=== PATIENT | female | born 2000 ===

== ENCOUNTER 2020-11-30 20:55 | Emergency (ER) | payer BC, OTHER ==
[2020-11-30] MEDS ORDERED: Sodium Chloride 0.9% 10 ML Syringe FLUSH PRN (21:17)
[2020-11-30] MEDS ORDERED: Sodium Chloride 0.9% 2.5 ML Syringe FLUSH PRN (21:17)
--- NOTE | 2020-11-30 21:21 | EDM.PDOC ---
ED HPI GENERAL MEDICAL PROBLEM - General Chief Complaint: Abdominal Pain Stated Complaint: ABDOBMINAL PAIN Time Seen by Provider: 11/30/20 21:06 - History of Present Illness INITIAL COMMENTS - FREE TEXT/NARRATIVE: 20-year-old female otherwise well presenting with severe lower abdominal and pelvic pain that started during intercourse immediately prior to arrival. Pain was initially 10 out of 10 and focused in the left lower quadrant. It is now more generalized and 4 out of 10 there is still worse in the bilateral lower quadrants. No nausea no vomiting no diarrhea patient was well prior to the onset of pain. She has no prior history of gynecologic problems. Her last menstrual period was at the end of October and was normal for her. Pain worsens with direct pressure and is currently 4 out of 10 down from a max of 10 out of 10 at time of onset bilateral abdomen Pain Score (Numeric/FACES): 8 - Related Data Allergies Allergy/AdvReac Type Severity Reaction Status Date / Time Sulfa (Sulfonamide Allergy Other Verified 11/30/20 21:09 Antibiotics) Home Meds: Home Meds . [No Known Home Meds] 11/30/20 [History] Past Medical History - Past Health History Medical/Surgical History: Denies Medical/Surgical History HEENT History: Reports: None Cardiovascular History: Reports: None Respiratory History: Reports: None Gastrointestinal History: Reports: Other (See Below) Other Gastrointestinal History: hx of stomach ulcers Genitourinary History: Reports: Other (See Below) Other Genitourinary History: states she had a cyst on her kidney SILK TRIMMER History: Reports: None Musculoskeletal History: Reports: None Neurological History: Reports: None Psychiatric History: Reports: None Endocrine/Metabolic History: Reports: None Hematologic History: Reports: None Immunologic History: Reports: None Oncologic (Cancer) History: Reports: None Dermatologic History: Reports: None - Infectious Disease History Infectious Disease History: Reports: Novel Coronavirus - Past Surgical History Head Surgeries/Procedures: Reports: None Social & Family History - Family History Family Medical History: No Pertinent Family History - Tobacco Use Tobacco Use Status *Q: Never Tobacco User - Caffeine Use Caffeine Use: Reports: None - Recreational Drug Use Recreational Drug Use: No ED ROS GENERAL - Review of Systems Review Of Systems: See Below Free Text/Narrative/Comment: General: No fever. Skin: No rash. Eyes: No vision problems. ENT: No sore throat. Neck: No neck stiffness. Respiratory: No shortness of breath. Cardiac: No chest pain. Gastrointestinal: Per HPI Gynecologic: No vaginal discharge or bleeding Urinary: No dysuria. Musculoskeletal: No myalgias/arthralgias. Neurologic: No headache. ED EXAM, GENERAL - Physical Exam Exam: See Below Free Text/Narrative:: General Appearance: No acute distress, appears comfortable Skin: No rash HEENT: Normocephalic/atraumatic, sclera anicteric, mucous membranes moist Neck: Normal range of motion Chest and Lungs: Bilateral breath sounds, clear to auscultation Cardiovascular: Regular rate and rhythm, no murmur Abdomen: Soft, mild generalized tenderness without guarding or rebound Back: Normal Musculoskeletal: No edema or tenderness Neurologic: Awake, alert, no obvious deficits, moving all extremities Psychiatric: Appropriate, cooperative Course - Vital Signs Last Recorded V/S: Last Vital Signs Temp 97.6 F 11/30/20 21:03 Pulse 72 11/30/20 21:03 Resp 20 11/30/20 21:03 BP 115/72 11/30/20 21:03 Pulse Ox 99 11/30/20 21:03 - Orders/Labs/Meds Orders: Active Orders 24 hr Category Date Time Status Sodium Chloride 0.9% [Saline Flush] Med 11/30/20 21:17 Active 10 ml FLUSH ASDIRECTED PRN Sodium Chloride 0.9% [Saline Flush] Med 11/30/20 21:17 Active 2.5 ml FLUSH ASDIRECTED PRN Saline Lock Insert [OM.PC] Stat Oth 11/30/20 21:17 Ordered Medication Orders Sodium Chloride (Sodium Chloride 0.9% 10 Ml Syringe) 10 ml FLUSH ASDIRECTED PRN PRN Reason: Keep Vein Open Sodium Chloride (Sodium Chloride 0.9% 2.5 Ml Syringe) 2.5 ml FLUSH ASDIRECTED PRN PRN Reason: Keep Vein Open Labs: Laboratory Tests 11/30/20 11/30/20 11/30/20 Range/Units 21:10 21:10 21:15 WBC 6.35 (4.0-11.0) K/uL RBC 4.42 (4.30-5.90) M/uL Hgb 13.9 (12.0-16.0) g/dL Hct 41.6 (36.0-46.0) % MCV 94.1 (80.0-98.0) fL MCH 31.4 (27.0-32.0) pg MCHC 33.4 (31.0-37.0) g/dL RDW Std Deviation 40.9 (28.0-62.0) fl RDW Coeff of Jase 12 (11.0-15.0) % Plt Count 200 (150-400) K/uL MPV 10.50 (7.40-12.00) fL Neut % (Auto) 47.0 L (48.0-80.0) % Lymph % (Auto) 43.9 H (16.0-40.0) % Coke % (Auto) 7.2 (0.0-15.0) % Eos % (Auto) 1.6 (0.0-7.0) % Baso % (Auto) 0.3 (0.0-1.5) % Neut # (Auto) 3.0 (1.4-5.7) K/uL Lymph # (Auto) 2.8 H (0.6-2.4) K/uL Coke # (Auto) 0.5 (0.0-0.8) K/uL Eos # (Auto) 0.1 (0.0-0.7) K/uL Baso # (Auto) 0.0 (0.0-0.1) K/uL Nucleated RBC % 0.0 /100WBC Nucleated RBCs # 0 K/uL Sodium 139 (136-145) mmol/L Potassium 4.2 (3.5-5.1) mmol/L Chloride 102 (98-107) mmol/L Carbon Dioxide 28.8 (21.0-32.0) mmol/L BUN 19 H (7.0-18.0) mg/dL Creatinine 0.9 (0.6-1.0) mg/dL Est Cr Clr Drug Dosing 85.38 mL/min Estimated GFR (MDRD) > 60.0 ml/min Glucose 99 (74-106) mg/dL Calcium 8.7 (8.5-10.1) mg/dL Total Bilirubin 0.2 (0.2-1.0) mg/dL AST 15 (15-37) IU/L ALT 21 (14-63) IU/L Alkaline Phosphatase 88 (46-116) U/L Total Protein 7.3 (6.4-8.2) g/dL Albumin 4.0 (3.4-5.0) g/dL Globulin 3.3 (2.6-4.0) g/dL Albumin/Globulin Ratio 1.2 (0.9-1.6) Urine Color YELLOW Urine Appearance CLEAR Urine pH 7.0 (5.0-8.0) Ur Specific Rhame 1.020 (1.001-1.035) Urine Protein NEGATIVE (NEGATIVE) mg/dL Urine Glucose (UA) NEGATIVE (NEGATIVE) mg/dL Urine Ketones NEGATIVE (NEGATIVE) mg/dL Urine Occult Blood NEGATIVE (NEGATIVE) Urine Nitrite NEGATIVE (NEGATIVE) Urine Bilirubin NEGATIVE (NEGATIVE) Urine Urobilinogen 0.2 (<2.0) EU/dL Ur Leukocyte Esterase NEGATIVE (NEGATIVE) Urine RBC 0-1 (0-2/HPF) Urine WBC 0-1 (0-5/HPF) Ur Epithelial Cells RARE (NONE-FEW) Urine Bacteria RARE (NEGATIVE) Urine HCG, Qual (NEGATIVE) 11/30/20 Range/Units 21:15 WBC (4.0-11.0) K/uL RBC (4.30-5.90) M/uL Hgb (12.0-16.0) g/dL Hct (36.0-46.0) % MCV (80.0-98.0) fL MCH (27.0-32.0) pg MCHC (31.0-37.0) g/dL RDW Std Deviation (28.0-62.0) fl RDW Coeff of Jase (11.0-15.0) % Plt Count (150-400) K/uL MPV (7.40-12.00) fL Neut % (Auto) (48.0-80.0) % Lymph % (Auto) (16.0-40.0) % Coke % (Auto) (0.0-15.0) % Eos % (Auto) (0.0-7.0) % Baso % (Auto) (0.0-1.5) % Neut # (Auto) (1.4-5.7) K/uL Lymph # (Auto) (0.6-2.4) K/uL Coke # (Auto) (0.0-0.8) K/uL Eos # (Auto) (0.0-0.7) K/uL Baso # (Auto) (0.0-0.1) K/uL Nucleated RBC % /100WBC Nucleated RBCs # K/uL Sodium (136-145) mmol/L Potassium (3.5-5.1) mmol/L Chloride (98-107) mmol/L Carbon Dioxide (21.0-32.0) mmol/L BUN (7.0-18.0) mg/dL Creatinine (0.6-1.0) mg/dL Est Cr Clr Drug Dosing mL/min Estimated GFR (MDRD) ml/min Glucose (74-106) mg/dL Calcium (8.5-10.1) mg/dL Total Bilirubin (0.2-1.0) mg/dL AST (15-37) IU/L ALT (14-63) IU/L Alkaline Phosphatase (46-116) U/L Total Protein (6.4-8.2) g/dL Albumin (3.4-5.0) g/dL Globulin (2.6-4.0) g/dL Albumin/Globulin Ratio (0.9-1.6) Urine Color Urine Appearance Urine pH (5.0-8.0) Ur Specific Rhame (1.001-1.035) Urine Protein (NEGATIVE) mg/dL Urine Glucose (UA) (NEGATIVE) mg/dL Urine Ketones (NEGATIVE) mg/dL Urine Occult Blood (NEGATIVE) Urine Nitrite (NEGATIVE) Urine Bilirubin (NEGATIVE) Urine Urobilinogen (<2.0) EU/dL Ur Leukocyte Esterase (NEGATIVE) Urine RBC (0-2/HPF) Urine WBC (0-5/HPF) Ur Epithelial Cells (NONE-FEW) Urine Bacteria (NEGATIVE) Urine HCG, Qual NEGATIVE (NEGATIVE) Meds: Medications Generic Name Dose Route Start Last Admin Trade Name Freq PRN Reason Stop Dose Admin Sodium Chloride 10 ml 11/30/20 21:17 Sodium Chloride 0.9% 10 Ml Syringe FLUSH ASDIRECTED PRN Keep Vein Open Sodium Chloride 2.5 ml 11/30/20 21:17 Sodium Chloride 0.9% 2.5 Ml Syringe FLUSH ASDIRECTED PRN Keep Vein Open Departure - Departure Time of Disposition: 23:53 Disposition: Home, Self-Care 01 Condition: Good Clinical Impression: Abnormal cervix finding, Ruptured ovarian cyst - Discharge Information *PRESCRIPTION DRUG MONITORING PROGRAM REVIEWED*: Not Applicable *COPY OF PRESCRIPTION DRUG MONITORING REPORT IN PATIENT DEISI: Not Applicable Instructions: Ovarian Cyst, [id number] Referrals: Denton Collier MD [Primary Care Provider] - Forms: ED Department Discharge Additional Instructions: There were areas on your cervix that were somewhat abnormal in appearance this could represent some atypical cells or could be within the realm of what is normal for you. This was not related to your presentation today. However it is important that you follow-up with a alteration hand to have formal assessment. If you do not have a alteration hand you can be seen at one of the clinics listed below. [facility] [address] [place] [id number] [facility] [address] [place] [id number] Your ultrasound showed a ruptured hemorrhagic ovarian cyst which is the likely cause of your symptoms. Your symptoms should continue to improve throughout the course of the day. If you have any worsening of pain lightheadedness dizziness nausea or vomiting or any other symptoms please call your doctor right away or return to the ER. It is very important you follow-up with a alteration hand you may need a repeat ultrasound of your pelvis in a few weeks to ensure that the suspected hemorrhagic ovarian cyst is improving on your left ovary. Sepsis Event Note (ED) - Evaluation Sepsis Screening Result: No Definite Risk - Focused Exam Vital Signs: Vital Signs Temp Pulse Resp BP Pulse Ox 11/30/20 21:03 97.6 F 72 20 115/72 99 - My Orders Last 24 Hours: My Active Orders 11/30/20 21:17 Sodium Chloride 0.9% [Saline Flush] 10 ml FLUSH ASDIRECTED PRN Sodium Chloride 0.9% [Saline Flush] 2.5 ml FLUSH ASDIRECTED PRN Saline Lock Insert [OM.PC] Stat - Assessment/Plan Last 24 Hours: My Active Orders 11/30/20 21:17 Sodium Chloride 0.9% [Saline Flush] 10 ml FLUSH ASDIRECTED PRN Sodium Chloride 0.9% [Saline Flush] 2.5 ml FLUSH ASDIRECTED PRN Saline Lock Insert [OM.PC] Stat Assessment:: Otherwise well 20-year-old female presenting with severe lower abdominal/pelvic pain started during intercourse. Ovarian torsion is a consideration but the spontaneous decrease of her pain makes this much less likely. Ruptured ovarian cyst is certainly a consideration. Vaginal injury also needs to be considered and pelvic exam is pending. CBC CMP urine hCG urinalysis and pelvic ultrasound also pending. 2155: Pelvic exam shows no sign of vaginal vault injury no bleeding no laceration normal external female genitalia. Cervix does have what may be some atypia on it this is not related to her presentation but we discussed it. We also discussed the importance of gynecology follow-up for this. 2355: Pelvic ultrasound is consistent with a ruptured hemorrhagic ovarian cyst on the left ovary which I believe is the cause of the patient's pain. Return precautions discussed and understood patient symptoms have continued to improve and she essentially is asymptomatic at this time. The importance of following up with gynecology for further evaluation was discussed and understood.
[2020-11-30 21:55] LABS: BLOOD UREA NITROGEN,BUN 19 mg/dL (7.0-18.0); CARBON DIOXIDE,CO2 28.8 mmol/L (21.0-32.0); CHLORIDE,CL 102 mmol/L (98-107); GLUCOSE RANDOM 99 mg/dL (74-106); POTASSIUM,K 4.2 mmol/L (3.5-5.1); SODIUM,NA 139 mmol/L (136-145)
--- NOTE | 2020-11-30 23:50 | US ---
For Patients: As a result of the Century Cures Act, medical imaging exams and procedure reports are released immediately into your electronic medical record. You may view this report before your referring provider. If you have questions, please contact your health care provider. INDICATION: Left lower quadrant pain during intercourse TECHNIQUE: Multiple transvaginal sonographic images of the pelvis. COMPARISON: None available FINDINGS: Uterus: 7.6 x 4.2 x 3.8 cm. Unremarkable echotexture of the myometrium. No masses. Endometrium: 13 mm in thickness. Inhomogeneous endometrial echotexture with possible small endometrial fluid. Right ovary: 3.4 x 3.8 x 1.5 cm. No ovarian or adnexal masses. Normal arterial and venous blood flow. Left ovary: 3.7 x 3.5 x 2.2 cm. A 3.2 x 1.7 x 1.0 cm ovoid echogenic area/structure adjacent to the left ovary, containing foci of color Doppler. Normal arterial and venous blood flow. Cul-de-sac: Moderate complex free-fluid. IMPRESSION: Moderate complex free fluid which could be related to a ruptured hemorrhagic cyst. A 3.2 cm ovoid echogenic area adjacent to the left ovary, containing foci of color Doppler, which could represent a blood clot surrounding adnexal vessels or a paraovarian lesion. A 6 week follow-up examination is recommended for further evaluation. Prominent endometrium containing apparent small fluid, which could be physiologic. Dictated by Ishan Nix MD @ 11/30/2020 11:49:[address] Ishan Nix @ Nov 30 2020 11:49PM
== END 2020-12-01 00:10 | disposition home or self-care (01) ==
LOC: MW.ED 20:55
DX: N83.202 Unspecified ovarian cyst, left side (principal); Z88.2 Allergy status to sulfonamides; Z86.16 Personal history of COVID-19
CPT/HCPCS: 36415; 76856; 76856-26; 80053; 81001; 81025; 85025; 99284-25

== ENCOUNTER 2022-01-18 20:58 | Inpatient (IN) | payer BC, OTHER ==
[2022-01-18] MEDS ORDERED: Water For Irrigation,Sterile 1,000 ML Container IRR PRN (21:28)
[2022-01-18] MEDS ORDERED: Misoprostol 200 MCG Tab PO PRN (21:28)
[2022-01-18] MEDS ORDERED: Misoprostol 25 MCG (1/4 of 100 MCG) Tab VAG PRN (21:28)
[2022-01-18] MEDS ORDERED: Sodium Chloride 0.9% 2.5 ML Syringe FLUSH PRN (21:28)
[2022-01-18] MEDS ORDERED: Sodium Chloride 0.9% 20 ML SDV IV PRN (21:28)
[2022-01-18] MEDS ORDERED: Tranexamic Acid 1,000 MG in Sodium Chloride 0.9% 100 ML IV PRN (21:28)
[2022-01-18] MEDS ORDERED: Butorphanol 1 MG/ML SDV IVPUSH PRN (21:28)
[2022-01-18] MEDS ORDERED: Sodium Chloride 0.9% 10 ML Syringe FLUSH PRN (21:28)
[2022-01-18] MEDS ORDERED: Terbutaline 1 MG/ML SDV SUBCUT PRN (21:28)
[2022-01-18] MEDS ORDERED: Methylergonovine 0.2 MG/1 ML Amp IM PRN (21:28)
[2022-01-18] MEDS ORDERED: Lidocaine 1% 50 ML MDV INJECT PRN (21:28)
[2022-01-18] MEDS ORDERED: Carboprost Tromethamine 250 MCG/1 ML Amp IM PRN (21:28)
[2022-01-18] MEDS ORDERED: Oxytocin/0.9 % Sodium Chloride 30 UNIT/500 ML BAG IV SCH (21:30)
[2022-01-18] MEDS ORDERED: Ondansetron 4 MG/2 ML SDV IVPUSH PRN (21:32)
[2022-01-18] MEDS ORDERED: Labetalol 100 MG/20 ML MDV IVPUSH PRN (21:49)
[2022-01-18 22:37] LABS: CARBON DIOXIDE,CO2 21.8 mmol/L (21.0-32.0); POTASSIUM,K 3.8 mmol/L (3.5-5.1)
[2022-01-19] MEDS: Misoprostol 25 MCG (1/4 of 100 MCG) Tab VAG PRN ×3 (02:35→10:51)
[2022-01-19] MEDS ORDERED: ePHEDrine 50 MG/ML SDV IVPUSH PRN ×2 (07:59)
[2022-01-19] MEDS ORDERED: Ropivacaine HCl/PF 400 MG in Premix Bag 1 BAG EPIDUR SCH (08:00)
[2022-01-19] MEDS: Lactated Ringers 1,000 ML IV SCH ×2 (15:21→19:22)
[2022-01-19] MEDS ORDERED: Lidocaine 2% with EPINEPHrine 1:200,000 20 ML SDV ONE (15:27)
[2022-01-19] MEDS: Oxytocin/0.9 % Sodium Chloride 30 UNIT/500 ML BAG IV SCH (16:20)
[2022-01-20] MEDS: Lactated Ringers 1,000 ML IV SCH ×4 (02:09→21:27)
[2022-01-20] MEDS ORDERED: Citric Acid/Sodium Citrate Solution 30 ML Cup PO PRN (02:35)
[2022-01-20] MEDS: Oxytocin/0.9 % Sodium Chloride 30 UNIT/500 ML BAG IV SCH (20:48)
[2022-01-20] MEDS: Calcium Carbonate 500 MG Tab.Chew PO PRN (22:57)
[2022-01-21] MEDS ORDERED: Docusate Sodium 100 MG Cap PO PRN (03:55)
[2022-01-21] MEDS ORDERED: Benzocaine/Menthol 20%-0.5% Spray 78 GM Cannister TOP PRN (03:55)
[2022-01-21] MEDS ORDERED: Ibuprofen 400 MG Tab PO PRN (03:55)
[2022-01-21] MEDS ORDERED: Bisacodyl 10 MG Supp RECTAL PRN (03:55)
[2022-01-21] MEDS ORDERED: Diphtheria,Pertussis(Acell),Tetanus Vaccine 0.5 ML Syringe IM ONE (03:55)
[2022-01-21] MEDS ORDERED: oxyCODONE 5 MG Tab PO PRN (03:55)
[2022-01-21] MEDS ORDERED: Acetaminophen 500 MG Tab PO PRN (03:55)
[2022-01-21] MEDS ORDERED: Ibuprofen 800 MG Tab PO PRN (03:55)
[2022-01-21] MEDS ORDERED: Lanolin 100% Cream 7 GM Tube TOP PRN (03:55)
[2022-01-21] MEDS: Calcium Carbonate 500 MG Tab.Chew PO PRN (05:31)
[2022-01-21] MEDS: Witch Hazel Medicated Pads 40/Jar TOP PRN (05:31)
[2022-01-21] MEDS: Acetaminophen 500 MG Tab PO PRN ×3 (05:31→19:55)
[2022-01-21 09:38] LABS: CARBON DIOXIDE,CO2 21.6 mmol/L (21.0-32.0); POTASSIUM,K 3.5 mmol/L (3.5-5.1)
[2022-01-22] MEDS: Acetaminophen 500 MG Tab PO PRN ×2 (08:21→16:50)
[2022-01-22] MEDS: Witch Hazel Medicated Pads 40/Jar TOP PRN (11:08)
[2022-01-23] MEDS: Acetaminophen 500 MG Tab PO PRN (07:58)
== END 2022-01-23 11:25 | disposition home or self-care (01) | DRG 560 ==
LOC: MW.OBCHECK 20:58 → MW.OB 22:14 → OBSVTOIN 01-21 03:19 → MW.OB 01-21 06:30
PROVIDERS: ADMIT Obstetrics & Gynecology; ATTEND Obstetrics & Gynecology
PROC: 10E0XZZ Delivery of Products of Conception, External Approach (ICD-10-PCS; principal; 2022-01-20)
PROC: 0U7C7ZZ Dilation of Cervix, Via Natural or Artificial Opening (ICD-10-PCS; 2022-01-20)
PROC: 10907ZC Drainage of Amniotic Fluid, Therapeutic from Products of Conception, Via Natural or Artificial Opening (ICD-10-PCS; 2022-01-20)
PROC: 3E033VJ Introduction of Other Hormone into Peripheral Vein, Percutaneous Approach (ICD-10-PCS; 2022-01-20)
PROC: 0KQM0ZZ Repair Perineum Muscle, Open Approach (ICD-10-PCS; 2022-01-20)
PROC: 10H07YZ Insertion of Other Device into Products of Conception, Via Natural or Artificial Opening (ICD-10-PCS; 2022-01-20)
PROC: 3E0R3BZ Introduction of Anesthetic Agent into Spinal Canal, Percutaneous Approach (ICD-10-PCS; 2022-01-21)
PROC: 00HU33Z Insertion of Infusion Device into Spinal Canal, Percutaneous Approach (ICD-10-PCS; 2022-01-21)
DX: O14.04 Mild to moderate pre-eclampsia, complicating childbirth (principal); Z3A.37 37 weeks gestation of pregnancy; Z37.0 Single live birth; O69.1XX0 Labor and delivery complicated by cord around neck, with compression, not applicable or unspecified; O70.1 Second degree perineal laceration during delivery; O98.52 Other viral diseases complicating childbirth; U07.1 COVID-19; O90.81 Anemia of the puerperium; D64.9 Anemia, unspecified
CPT/HCPCS: 01967; 36415; 51702; 59025; 59200; 59409; 80053; 82570; 82803; 84156; 84550; 85027; 86592; 86850; 86900; 86901; A9270-GY; J2405; J2590; J2795; J7120; U0002

== ENCOUNTER 2024-03-30 18:23 | Inpatient (IN) | payer BC, OTHER ==
[2024-03-30] MEDS ORDERED: Tranexamic Acid IN NACL,ISO-OS 1,000 MG in Premix Bag 1 BAG IV PRN (19:14)
[2024-03-30] MEDS ORDERED: Misoprostol 200 MCG Tab PO PRN (19:14)
[2024-03-30] MEDS ORDERED: Ondansetron 4 MG/2 ML SDV IVPUSH PRN (19:14)
[2024-03-30] MEDS ORDERED: Lidocaine 1% 50 ML MDV INJECT PRN (19:14)
[2024-03-30] MEDS ORDERED: Carboprost Tromethamine 250 MCG/1 mL Vial IM PRN (19:14)
[2024-03-30] MEDS ORDERED: Water For Irrigation,Sterile 1,000 ML Container IRR PRN (19:14)
[2024-03-30] MEDS ORDERED: Sodium Chloride 0.9% 20 ML SDV IV PRN (19:14)
[2024-03-30] MEDS ORDERED: Sodium Chloride 0.9% 2.5 ML Syringe FLUSH PRN (19:14)
[2024-03-30] MEDS ORDERED: Sodium Chloride 0.9% 10 ML Syringe FLUSH PRN (19:14)
[2024-03-30] MEDS ORDERED: Methylergonovine 0.2 MG/1 ML Amp IM PRN (19:14)
[2024-03-30] MEDS ORDERED: Butorphanol 2 MG/ML SDV IVPUSH PRN (19:14)
[2024-03-30 20:58] LABS: HEMATOCRIT 39.4 % (37.0-47.0); HEMOGLOBIN 13.4 g/dL (12.0-16.0); MEAN CORPUSCULAR HEMOGLOBIN 32.6 pg (28.0-32.0); MEAN CORPUSCULAR VOLUME 95.9 fL (83.0-99.0); MEAN PLATELET VOLUME 11.7 fL (9.4-12.3); PLATELET COUNT,PLT 152 K/uL (150-400); RED BLOOD CELL COUNT 4.11 M/uL (4.10-5.30); WHITE BLOOD CELL COUNT,WBC 9.16 K/uL (3.9-11.3)
[2024-03-30] MEDS: Lactated Ringers 1,000 ML IV SCH (23:00)
[2024-03-30] MEDS ORDERED: Ropivacaine HCl/PF 200 ML ONE (23:10)
[2024-03-30] MEDS ORDERED: Bupivacaine 0.5% 10 ML SDV ONE (23:10)
[2024-03-30] MEDS ORDERED: Phenylephrine HCl In 0.9% NaCl 1 MG/10 ML Syringe ONE (23:10)
[2024-03-30] MEDS ORDERED: Phenylephrine HCl In 0.9% NaCl 1 MG/10 ML Syringe IVPUSH PRN (23:37)
[2024-03-30] MEDS ORDERED: ePHEDrine 50 MG/ML SDV IM PRN (23:37)
[2024-03-30] MEDS ORDERED: ePHEDrine 50 MG/ML SDV IVPUSH PRN (23:37)
[2024-03-30] MEDS ORDERED: Bupivacaine 0.5% 10 ML SDV INJECT ONE (23:37)
[2024-03-30] MEDS ORDERED: dexmedeTOMIDine HCl 200 MCG/2 ML SDV EPIDUR SCH (23:45)
[2024-03-31] MEDS: Ropivacaine HCl/PF 400 MG in Premix Bag 1 BAG EPIDUR SCH (00:01)
[2024-03-31] MEDS ORDERED: Oxytocin/0.9 % Sodium Chloride 30 UNIT/500 ML BAG ONE (00:27)
[2024-03-31] MEDS ORDERED: Benzocaine/Menthol 20%-0.5% Spray 78 GM Cannister TOP PRN (01:07)
[2024-03-31] MEDS ORDERED: Ibuprofen 800 MG Tab PO PRN (01:07)
[2024-03-31] MEDS ORDERED: oxyCODONE 5 MG Tab PO PRN (01:07)
[2024-03-31] MEDS ORDERED: Acetaminophen 500 MG Tab PO PRN (01:07)
[2024-03-31] MEDS ORDERED: Docusate Sodium 100 MG Cap PO PRN (01:07)
[2024-03-31] MEDS ORDERED: Lanolin 100% Cream 7 GM Tube TOP PRN (01:07)
[2024-03-31 01:32] LABS: PH,UMBILICAL ARTERIAL 7.232 (7.18-7.38); PH,UMBILICAL VENOUS 7.352 (7.25-7.45)
[2024-03-31] MEDS: Oxytocin/0.9 % Sodium Chloride 30 UNIT/500 ML BAG IV SCH (03:14)
[2024-03-31] MEDS ORDERED: Witch Hazel Medicated Pads 40/Jar TOP ONE (08:17)
[2024-03-31] MEDS: Witch Hazel Medicated Pads 40/Jar TOP PRN (09:15)
[2024-03-31 12:33] LABS: HEMATOCRIT 34.1 % (37.0-47.0); HEMOGLOBIN 11.3 g/dL (12.0-16.0)
== END 2024-04-01 11:30 | disposition home or self-care (01) | DRG 560 ==
LOC: MW.OBCHECK 18:23 → MW.OB 18:23 → MW.OBCHECK 21:05 → OBSVTOIN 03-31 00:51 → MW.OB 03-31 06:08
PROVIDERS: ADMIT Obstetrics & Gynecology; ATTEND Obstetrics & Gynecology
PROC: 10E0XZZ Delivery of Products of Conception, External Approach (ICD-10-PCS; principal; 2024-03-31)
PROC: 3E0R3BZ Introduction of Anesthetic Agent into Spinal Canal, Percutaneous Approach (ICD-10-PCS; 2024-03-31)
PROC: 00HU33Z Insertion of Infusion Device into Spinal Canal, Percutaneous Approach (ICD-10-PCS; 2024-03-31)
PROC: 10907ZC Drainage of Amniotic Fluid, Therapeutic from Products of Conception, Via Natural or Artificial Opening (ICD-10-PCS; 2024-03-31)
DX: O48.0 Post-term pregnancy (principal); Z37.0 Single live birth; Z90.89 Acquired absence of other organs; Z87.891 Personal history of nicotine dependence; Z3A.40 40 weeks gestation of pregnancy
CPT/HCPCS: 01967; 36415; 51701; 59025; 59409; 82803; 85014; 85018; 85027; 86592; 86850; 86900; 86901; A9270-GY; J0665; J2371; J2590; J2795; J7120